=== PATIENT | female | born 1965 | race Caucasian/White ===

== ENCOUNTER 2021-01-26 12:43 | Outpatient (CLI) | payer OTHER | END 2021-01-26 12:44 | disposition home or self-care (01) | LOC: BICCT 12:43 | PROVIDERS: ATTEND Family Medicine | DX: Z12.2 Encounter for screening for malignant neoplasm of respiratory organs (principal); Z87.891 Personal history of nicotine dependence | CPT/HCPCS: 71271 ==

== ENCOUNTER 2021-01-26 13:54 | Outpatient (CLI) | payer OTHER | END 2021-01-26 13:55 | disposition home or self-care (01) | LOC: BICMAMMO 13:54 | PROVIDERS: ATTEND Family Medicine | DX: Z12.31 Encounter for screening mammogram for malignant neoplasm of breast (principal) | CPT/HCPCS: 77063; 77067 ==

== ENCOUNTER 2021-02-23 17:20 | Inpatient (IN) | payer OTHER ==
[2021-02-23] MEDS ORDERED: traMADol HCl 50 MG TAB PO SCH (22:45)
[2021-02-23] MEDS: methylPREDNISolone Sod Succ 40 MG VIAL IVP SCH (23:50)
[2021-02-24] MEDS: Ondansetron PF 4 MG/2 ML Vial IVP PRN ×2 (03:49→09:16)
[2021-02-24] MEDS ORDERED: Ketorolac Tromethamine 30 MG/ML VIAL IVP SCH (04:15)
[2021-02-24] MEDS: methylPREDNISolone Sod Succ 40 MG VIAL IVP SCH ×4 (05:42→23:37)
[2021-02-24] MEDS: Acetaminophen 325 MG TAB PO PRN ×2 (05:54→15:56)
[2021-02-24] MEDS: Mometasone 100 MCG/Formoterol 5 MCG 120 PUFF INHALER INH SCH (07:54)
[2021-02-24] MEDS: Venlafaxine HCl XR 150 MG CAP PO SCH (08:36)
[2021-02-24] MEDS: Enoxaparin Sodium 40 MG/0.4 ML SYRINGE SC SCH (08:36)
[2021-02-24] MEDS: Famotidine 20 MG TAB PO SCH ×2 (08:36→19:55)
[2021-02-24] MEDS ORDERED: Promethazine HCl 25 MG in Sodium Chloride 0.9% 50 ML IVPB PRN (11:06)
[2021-02-24] MEDS: Ketorolac Tromethamine 30 MG/ML VIAL IVP PRN ×2 (11:36→17:53)
[2021-02-24] MEDS: Azithromycin 500 MG in Sodium Chloride 0.9% 250 ML 250 ML IVPB SCH (13:20)
[2021-02-24] MEDS: cefTRIAXone\\ROCEPHIN 1 GM in Sodium Chloride 0.9% 100 ML IVPB SCH (15:50)
[2021-02-24] MEDS ORDERED: traMADol HCl 50 MG TAB PO SCH (21:30)
[2021-02-25] MEDS: Mometasone 100 MCG/Formoterol 5 MCG 120 PUFF INHALER INH SCH ×3 (01:38→18:56)
[2021-02-25] MEDS: methylPREDNISolone Sod Succ 40 MG VIAL IVP SCH ×4 (05:28→23:41)
[2021-02-25] MEDS: Ketorolac Tromethamine 30 MG/ML VIAL IVP PRN ×3 (06:31→19:57)
[2021-02-25 06:54] LABS: Anion Gap 9 mmol/L (10-20); BUN (Urea Nitrogen) 11 mg/dL (9.8-20.1); Calc. Creatinine Clearance 88 mL/min (70-130); Calcium 9.7 mg/dL (7.8-10.44); Carbon Dioxide 36 mmol/L (22-29); Chloride 98 mmol/L (98-107); Glucose 130 mg/dL (70-105); Potassium 5.4 mmol/L (3.5-5.1); Sodium 138 mmol/L (136-145)
[2021-02-25] MEDS ORDERED: Non-Formulary Item 1 EACH (Tiotropium Bromide [Spiriva] 18 MCG Cap.W.Dev) INH SCH (09:00)
[2021-02-25] MEDS ORDERED: Venlafaxine HCl XR 150 MG CAP PO SCH (09:00)
[2021-02-25] MEDS: Famotidine 20 MG TAB PO SCH ×2 (09:43→19:57)
[2021-02-25] MEDS: Enoxaparin Sodium 40 MG/0.4 ML SYRINGE SC SCH (09:43)
[2021-02-25] MEDS: Venlafaxine HCl XR 150 MG CAP PO SCH (09:43)
[2021-02-25] MEDS: Acetaminophen 325 MG TAB PO PRN ×2 (09:51→23:40)
[2021-02-25] MEDS: Azithromycin 500 MG in Sodium Chloride 0.9% 250 ML 250 ML IVPB SCH (12:44)
[2021-02-25] MEDS: cefTRIAXone\\ROCEPHIN 1 GM in Sodium Chloride 0.9% 100 ML IVPB SCH (14:43)
[2021-02-26] MEDS: Ketorolac Tromethamine 30 MG/ML VIAL IVP PRN ×2 (03:29→10:59)
[2021-02-26] MEDS: methylPREDNISolone Sod Succ 40 MG VIAL IVP SCH ×4 (05:38→23:26)
[2021-02-26 06:26] LABS: #Eosinphils 0.3 thou/uL (0.0-0.7); #Lymphocytes 0.6 thou/uL (1.20-3.40); #Monocytes 0.8 thou/uL (0.11-0.59); #Neutrophils 13.3 thou/uL (1.40-6.50); %Basophils 0.1 % (0.0-1.0); %Eosinophils 1.9 % (0.0-10.0); %Lymphocytes 4.1 % (21.0-51.0); %Monocytes 5.4 % (0.0-10.0); %Neutrophils 88.6 % (42.0-75.0); Hemoglobin 13.7 g/dL (12.0-16.0); Mean Corpuscular HGB CONC 30.2 g/dL (32.0-36.0); Mean Corpuscular Hemoglobin 29.6 pg (27.0-31.0); Mean Platelet Volume 6.5 fL (7.4-10.4); Platelet Count 326 thou/uL (130-400); RBC Distribution Width 12.2 % (11.5-14.5); Red Blood Cell (RBC) Count 4.64 mill/uL (4.20-5.40)
[2021-02-26 06:45] LABS: BUN (Urea Nitrogen) 18 mg/dL (9.8-20.1); Calc. Creatinine Clearance 102 mL/min (70-130); Calcium 9.6 mg/dL (7.8-10.44); Glucose 158 mg/dL (70-105)
[2021-02-26] MEDS: Mometasone 100 MCG/Formoterol 5 MCG 120 PUFF INHALER INH SCH ×2 (06:53→18:41)
[2021-02-26 06:54] LABS: Anion Gap 13 mmol/L (10-20); Carbon Dioxide 36 mmol/L (22-29); Chloride 94 mmol/L (98-107); Potassium 5.1 mmol/L (3.5-5.1); Sodium 138 mmol/L (136-145)
[2021-02-26] MEDS: Venlafaxine HCl XR 150 MG CAP PO SCH (08:22)
[2021-02-26] MEDS: Famotidine 20 MG TAB PO SCH ×2 (08:22→20:53)
[2021-02-26] MEDS: Enoxaparin Sodium 40 MG/0.4 ML SYRINGE SC SCH (08:23)
[2021-02-26 13:26] LABS: Actual Bicarbonate (HCO3a) 45.2 mEq/L (22-28); Base Excess (BEa) 12.9 mEq/L (-2.0 to +3.0); Calcium, Ionized (arterial) 1.31 mmol/L (1.12-1.30); Carboxyhemoglobin (COHb) 0.8 gm% (0.0-3.0); Hemoglobin (Hb) 14.6 g/dL (12.0-16.0); O2 Tension (PaO2), arterial 71.4 mmHg (80.0-100.0); Potassium - ABG Lab 4.81 mmol/L (3.70-5.30)
[2021-02-26 13:33] LABS: ALV-art Gradient 25.135 mmHg (0-20); CO2 Tension 105.3 mmHg (35.0-45.0); Puncture Site RRA; pH, Arterial 7.25 (7.35-7.45)
[2021-02-26] MEDS: Azithromycin 500 MG in Sodium Chloride 0.9% 250 ML 250 ML IVPB SCH (15:02)
[2021-02-26] MEDS: cefTRIAXone\\ROCEPHIN 1 GM in Sodium Chloride 0.9% 100 ML IVPB SCH (17:13)
[2021-02-27] MEDS ORDERED: ALPRAZolam 0.25 MG TAB PO SCH (03:00)
[2021-02-27] MEDS: methylPREDNISolone Sod Succ 40 MG VIAL IVP SCH ×3 (05:58→17:10)
[2021-02-27] MEDS: Mometasone 100 MCG/Formoterol 5 MCG 120 PUFF INHALER INH SCH (07:40)
[2021-02-27] MEDS ORDERED: Potassium Phosphate 15 MMOL in Sodium Chloride 0.9% 250 ML 250 ML IVPB PRN (07:43)
[2021-02-27 08:59] LABS: Actual Bicarbonate (HCO3a) 44.1 mEq/L (22-28); Base Excess (BEa) 13.9 mEq/L (-2.0 to +3.0); Calcium, Ionized (arterial) 1.22 mmol/L (1.12-1.30); Hemoglobin (Hb) 15.2 g/dL (12.0-16.0); Potassium - ABG Lab 4.35 mmol/L (3.70-5.30); pH, Arterial 7.35 (7.35-7.45)
[2021-02-27 09:10] LABS: Puncture Site RRA
[2021-02-27] MEDS: Venlafaxine HCl XR 150 MG CAP PO SCH (09:24)
[2021-02-27] MEDS: Famotidine 20 MG TAB PO SCH ×2 (09:24→20:54)
[2021-02-27] MEDS: Enoxaparin Sodium 40 MG/0.4 ML SYRINGE SC SCH (09:24)
[2021-02-27 10:06] LABS: Magnesium 2.3 mg/dL (1.6-2.6)
[2021-02-27] MEDS ORDERED: Propofol 1,000 MG/100 ML VIAL IV ONE (10:30)
[2021-02-27] MEDS ORDERED: cloNIDine 0.3mg/24 Hour PATCH TD SCH (11:30)
[2021-02-27] MEDS ORDERED: acetaZOLAMIDE Sodium 500 mg Vial IVP SCH (12:00)
[2021-02-27] MEDS ORDERED: Sterile Water 10 ML VIAL IVP PRN (12:00)
[2021-02-27] MEDS: acetaZOLAMIDE Sodium 500 mg Vial IVP SCH (12:56)
[2021-02-27 13:13] LABS: Actual Bicarbonate (HCO3a) 42.3 mEq/L (22-28); Base Excess (BEa) 12.9 mEq/L (-2.0 to +3.0); Potassium - ABG Lab 4.08 mmol/L (3.70-5.30); pH, Arterial 7.36 (7.35-7.45)
[2021-02-27] MEDS: Azithromycin 500 MG in Sodium Chloride 0.9% 250 ML 250 ML IVPB SCH (13:23)
[2021-02-27 13:50] LABS: BUN (Urea Nitrogen) 21 mg/dL (9.8-20.1); Calc. Creatinine Clearance 114 mL/min (70-130); Calcium 9.5 mg/dL (7.8-10.44); Glucose 121 mg/dL (70-105)
[2021-02-27 14:03] LABS: Anion Gap 14 mmol/L (10-20); Carbon Dioxide 36 mmol/L (22-29); Chloride 92 mmol/L (98-107); Potassium 4.3 mmol/L (3.5-5.1); Sodium 138 mmol/L (136-145)
[2021-02-27 15:32] LABS: CO2 Tension 76.6 mmHg (35.0-45.0)
[2021-02-27] MEDS: cefTRIAXone\\ROCEPHIN 1 GM in Sodium Chloride 0.9% 100 ML IVPB SCH (15:32)
[2021-02-27 15:33] LABS: O2 Tension (PaO2), arterial 56.4 mmHg (80.0-100.0); Puncture Site LRA
[2021-02-27] MEDS ORDERED: Nitroglycerin 0.6mg/Hour PATCH TOP SCH (17:00)
[2021-02-27] MEDS: Nitroglycerin 0.6mg/Hour PATCH TOP SCH (17:08)
[2021-02-27] MEDS: Arformoterol 15 MCG/2 ML NEB NEB SCH (18:43)
[2021-02-27] MEDS: Budesonide 0.5 MG/2 ML NEB NEB SCH (18:43)
[2021-02-27] MEDS: Mometasone 200 MCG/Formoterol 5 MCG 120 PUFF INHALER INH SCH (18:44)
[2021-02-28] MEDS: methylPREDNISolone Sod Succ 40 MG VIAL IVP SCH ×5 (00:27→23:17)
[2021-02-28 03:48] LABS: #Eosinphils 0.1 thou/uL (0.0-0.7); #Lymphocytes 0.5 thou/uL (1.20-3.40); #Monocytes 0.9 thou/uL (0.11-0.59); #Neutrophils 10.3 thou/uL (1.40-6.50); %Eosinophils 0.6 % (0.0-10.0); %Lymphocytes 4.5 % (21.0-51.0); %Monocytes 7.7 % (0.0-10.0); %Neutrophils 87.2 % (42.0-75.0); Hemoglobin 14.4 g/dL (12.0-16.0); Mean Corpuscular HGB CONC 31.8 g/dL (32.0-36.0); Mean Corpuscular Hemoglobin 29.9 pg (27.0-31.0); Mean Corpuscular Volume 94.1 fL (78.0-98.0); Mean Platelet Volume 6.5 fL (7.4-10.4); Platelet Count 370 thou/uL (130-400); Red Blood Cell (RBC) Count 4.82 mill/uL (4.20-5.40); White Blood Cell (WBC) Count 11.8 thou/uL (4.8-10.8)
[2021-02-28 04:08] LABS: Anion Gap 12 mmol/L (10-20); BUN (Urea Nitrogen) 31 mg/dL (9.8-20.1); Calc. Creatinine Clearance 82 mL/min (70-130); Calcium 9.7 mg/dL (7.8-10.44); Carbon Dioxide 33 mmol/L (22-29); Chloride 99 mmol/L (98-107); Glucose 131 mg/dL (70-105); Magnesium 2.6 mg/dL (1.6-2.6); Phosphorus 3.2 mg/dL (2.3-4.7); Potassium 4.5 mmol/L (3.5-5.1); Sodium 139 mmol/L (136-145)
[2021-02-28] MEDS: acetaZOLAMIDE Sodium 500 mg Vial IVP SCH ×2 (06:18→11:47)
[2021-02-28 06:59] LABS: Actual Bicarbonate (HCO3a) 32.3 mEq/L (22-28); CO2 Tension 58.4 mmHg (35.0-45.0); Calcium, Ionized (arterial) 1.24 mmol/L (1.12-1.30); Hemoglobin (Hb) 14.7 g/dL (12.0-16.0); O2 Tension (PaO2), arterial 67.4 mmHg (80.0-100.0); Potassium - ABG Lab 4.32 mmol/L (3.70-5.30); Puncture Site LRA; pH, Arterial 7.36 (7.35-7.45)
[2021-02-28] MEDS: Arformoterol 15 MCG/2 ML NEB NEB SCH ×2 (07:30→18:26)
[2021-02-28] MEDS: Budesonide 0.5 MG/2 ML NEB NEB SCH ×2 (07:30→18:26)
[2021-02-28] MEDS: Venlafaxine HCl XR 150 MG CAP PO SCH (09:08)
[2021-02-28] MEDS: Famotidine 20 MG TAB PO SCH ×2 (09:08→22:00)
[2021-02-28] MEDS: Enoxaparin Sodium 40 MG/0.4 ML SYRINGE SC SCH (09:08)
[2021-02-28] MEDS: Azithromycin 500 MG in Sodium Chloride 0.9% 250 ML 250 ML IVPB SCH (12:53)
[2021-02-28] MEDS: cefTRIAXone\\ROCEPHIN 1 GM in Sodium Chloride 0.9% 100 ML IVPB SCH (13:50)
[2021-02-28] MEDS: Acetaminophen 325 MG TAB PO PRN (13:50)
[2021-02-28] MEDS: Mometasone 200 MCG/Formoterol 5 MCG 120 PUFF INHALER INH SCH ×2 (14:29→18:27)
[2021-02-28] MEDS: Nitroglycerin 0.6mg/Hour PATCH TOP SCH (16:51)
[2021-02-28] MEDS ORDERED: Labetalol HCl 100 MG/20 ML VIAL SLOW IVP PRN (22:50)
[2021-03-01] MEDS: Ketorolac Tromethamine 30 MG/ML VIAL IVP PRN (04:13)
[2021-03-01 04:36] LABS: #Eosinphils 0.1 thou/uL (0.0-0.7); #Lymphocytes 0.6 thou/uL (1.20-3.40); #Monocytes 1.2 thou/uL (0.11-0.59); #Neutrophils 14.5 thou/uL (1.40-6.50); %Basophils 0.3 % (0.0-1.0); %Eosinophils 0.4 % (0.0-10.0); %Lymphocytes 3.7 % (21.0-51.0); %Monocytes 7.1 % (0.0-10.0); %Neutrophils 88.5 % (42.0-75.0); Hemoglobin 15.5 g/dL (12.0-16.0); Mean Corpuscular HGB CONC 32.5 g/dL (32.0-36.0); Mean Corpuscular Hemoglobin 30.4 pg (27.0-31.0); Mean Corpuscular Volume 93.3 fL (78.0-98.0); Mean Platelet Volume 6.8 fL (7.4-10.4); Platelet Count 428 thou/uL (130-400); RBC Distribution Width 12.2 % (11.5-14.5); White Blood Cell (WBC) Count 16.4 thou/uL (4.8-10.8)
[2021-03-01 04:58] LABS: Anion Gap 10 mmol/L (10-20); BUN (Urea Nitrogen) 28 mg/dL (9.8-20.1); Calc. Creatinine Clearance 95 mL/min (70-130); Calcium 9.5 mg/dL (7.8-10.44); Carbon Dioxide 29 mmol/L (22-29); Chloride 104 mmol/L (98-107); Glucose 153 mg/dL (70-105); Magnesium 2.7 mg/dL (1.6-2.6); Phosphorus 3.3 mg/dL (2.3-4.7); Potassium 4.1 mmol/L (3.5-5.1); Sodium 139 mmol/L (136-145)
[2021-03-01] MEDS: acetaZOLAMIDE Sodium 500 mg Vial IVP SCH (06:05)
[2021-03-01] MEDS: methylPREDNISolone Sod Succ 40 MG VIAL IVP SCH ×4 (06:06→23:37)
[2021-03-01] MEDS ORDERED: Sterile Water 10 ML ONE (06:09)
[2021-03-01] MEDS: Budesonide 0.5 MG/2 ML NEB NEB SCH ×2 (06:59→21:07)
[2021-03-01] MEDS: Arformoterol 15 MCG/2 ML NEB NEB SCH ×2 (06:59→21:07)
[2021-03-01 07:03] LABS: Actual Bicarbonate (HCO3a) 29.6 mEq/L (22-28); Base Excess (BEa) -0.8 mEq/L (-2.0 to +3.0); Calcium, Ionized (arterial) 1.31 mmol/L (1.12-1.30); Carboxyhemoglobin (COHb) 0.7 gm% (0.0-3.0); O2 Tension (PaO2), arterial 123.6 mmHg (80.0-100.0); Potassium - ABG Lab 4.37 mmol/L (3.70-5.30)
[2021-03-01 07:45] LABS: CO2 Tension 75.8 mmHg (35.0-45.0); pH, Arterial 7.21 (7.35-7.45)
[2021-03-01 07:46] LABS: Puncture Site RRA
[2021-03-01] MEDS: Venlafaxine HCl XR 150 MG CAP PO SCH (09:48)
[2021-03-01] MEDS: Enoxaparin Sodium 40 MG/0.4 ML SYRINGE SC SCH (09:48)
[2021-03-01] MEDS: Famotidine 20 MG TAB PO SCH ×2 (09:48→21:18)
[2021-03-01 11:49] LABS: Actual Bicarbonate (HCO3a) 28.5 mEq/L (22-28); Base Excess (BEa) -0.3 mEq/L (-2.0 to +3.0); Calcium, Ionized (arterial) 1.31 mmol/L (1.12-1.30); Carboxyhemoglobin (COHb) 0.9 gm% (0.0-3.0); Hemoglobin (Hb) 16.3 g/dL (12.0-16.0); Potassium - ABG Lab 4.26 mmol/L (3.70-5.30); pH, Arterial 7.27 (7.35-7.45)
[2021-03-01 11:58] LABS: CO2 Tension 63.6 mmHg (35.0-45.0); O2 Tension (PaO2), arterial 52.4 mmHg (80.0-100.0); Puncture Site RRA
[2021-03-01] MEDS: Azithromycin 500 MG in Sodium Chloride 0.9% 250 ML 250 ML IVPB SCH (15:13)
[2021-03-01] MEDS: cefTRIAXone\\ROCEPHIN 1 GM in Sodium Chloride 0.9% 100 ML IVPB SCH (15:27)
[2021-03-01] MEDS: Nitroglycerin 0.6mg/Hour PATCH TOP SCH (17:27)
[2021-03-01] MEDS: Naproxen 500 MG TAB PO PRN (18:07)
[2021-03-01] MEDS: Mometasone 200 MCG/Formoterol 5 MCG 120 PUFF INHALER INH SCH ×2 (21:03→21:09)
[2021-03-02 04:31] LABS: #Eosinphils 0.1 thou/uL (0.0-0.7); #Lymphocytes 0.5 thou/uL (1.20-3.40); #Monocytes 0.8 thou/uL (0.11-0.59); #Neutrophils 15.3 thou/uL (1.40-6.50); %Basophils 0.1 % (0.0-1.0); %Eosinophils 0.7 % (0.0-10.0); %Lymphocytes 2.7 % (21.0-51.0); %Monocytes 4.8 % (0.0-10.0); %Neutrophils 91.7 % (42.0-75.0); Hemoglobin 14.9 g/dL (12.0-16.0); Mean Corpuscular HGB CONC 31.9 g/dL (32.0-36.0); Mean Corpuscular Hemoglobin 29.7 pg (27.0-31.0); Mean Corpuscular Volume 93.1 fL (78.0-98.0); Mean Platelet Volume 6.8 fL (7.4-10.4); Platelet Count 401 thou/uL (130-400); RBC Distribution Width 12.2 % (11.5-14.5); White Blood Cell (WBC) Count 16.6 thou/uL (4.8-10.8)
[2021-03-02 04:56] LABS: Magnesium 2.3 mg/dL (1.6-2.6); Phosphorus 1.7 mg/dL (2.3-4.7)
[2021-03-02] MEDS: methylPREDNISolone Sod Succ 40 MG VIAL IVP SCH ×2 (05:38→20:54)
[2021-03-02] MEDS: Budesonide 0.5 MG/2 ML NEB NEB SCH ×2 (07:05→19:23)
[2021-03-02] MEDS: Arformoterol 15 MCG/2 ML NEB NEB SCH ×2 (07:05→19:23)
[2021-03-02] MEDS: Mometasone 200 MCG/Formoterol 5 MCG 120 PUFF INHALER INH SCH ×2 (07:06→19:24)
[2021-03-02 07:25] LABS: Actual Bicarbonate (HCO3a) 28.2 mEq/L (22-28); Base Excess (BEa) 0.4 mEq/L (-2.0 to +3.0); CO2 Tension 58.3 mmHg (35.0-45.0); Calcium, Ionized (arterial) 1.24 mmol/L (1.12-1.30); Hemoglobin (Hb) 15.3 g/dL (12.0-16.0); Potassium - ABG Lab 4.44 mmol/L (3.70-5.30)
[2021-03-02 07:38] LABS: ALV-art Gradient 53.305 mmHg (0-20); O2 Tension (PaO2), arterial 59.2 mmHg (80.0-100.0); Puncture Site RRA
[2021-03-02] MEDS ORDERED: Electrolyte Replacement Protocol 1 EACH FS PRN (09:59)
[2021-03-02] MEDS: Enoxaparin Sodium 40 MG/0.4 ML SYRINGE SC SCH (10:01)
[2021-03-02] MEDS: Famotidine 20 MG TAB PO SCH ×2 (10:02→20:53)
[2021-03-02] MEDS: Venlafaxine HCl XR 150 MG CAP PO SCH (10:02)
[2021-03-02] MEDS: Nitroglycerin 0.6mg/Hour PATCH TOP SCH (17:33)
[2021-03-03 06:11] LABS: Anion Gap 6 mmol/L (10-20); BUN (Urea Nitrogen) 18 mg/dL (9.8-20.1); Calc. Creatinine Clearance 111 mL/min (70-130); Calcium 8.8 mg/dL (7.8-10.44); Carbon Dioxide 33 mmol/L (22-29); Chloride 101 mmol/L (98-107); Glucose 165 mg/dL (70-105); Magnesium 2.1 mg/dL (1.6-2.6); Potassium 4.3 mmol/L (3.5-5.1); Sodium 136 mmol/L (136-145)
[2021-03-03] MEDS: Mometasone 200 MCG/Formoterol 5 MCG 120 PUFF INHALER INH SCH ×2 (08:00→18:57)
[2021-03-03] MEDS: Arformoterol 15 MCG/2 ML NEB NEB SCH ×2 (08:00→18:56)
[2021-03-03] MEDS: Budesonide 0.5 MG/2 ML NEB NEB SCH ×2 (08:00→18:56)
[2021-03-03] MEDS: Venlafaxine HCl XR 150 MG CAP PO SCH (08:52)
[2021-03-03] MEDS: methylPREDNISolone Sod Succ 40 MG VIAL IVP SCH ×2 (08:52→21:53)
[2021-03-03] MEDS: Famotidine 20 MG TAB PO SCH ×2 (08:52→21:20)
[2021-03-03] MEDS: Enoxaparin Sodium 40 MG/0.4 ML SYRINGE SC SCH (08:52)
[2021-03-03] MEDS: Nitroglycerin 0.6mg/Hour PATCH TOP SCH (17:46)
[2021-03-04 04:10] LABS: Hemoglobin A1c 5.6 % (4.0-6.0)
[2021-03-04 04:22] LABS: Anion Gap 11 mmol/L (10-20); BUN (Urea Nitrogen) 21 mg/dL (9.8-20.1); Calc. Creatinine Clearance 102 mL/min (70-130); Calcium 9.2 mg/dL (7.8-10.44); Carbon Dioxide 33 mmol/L (22-29); Chloride 97 mmol/L (98-107); Glucose 201 mg/dL (70-105); Potassium 4.6 mmol/L (3.5-5.1); Sodium 136 mmol/L (136-145)
[2021-03-04 04:23] LABS: Hemoglobin 14.5 g/dL (12.0-16.0); Mean Corpuscular HGB CONC 32.6 g/dL (32.0-36.0); Mean Corpuscular Hemoglobin 30.2 pg (27.0-31.0); Mean Corpuscular Volume 92.5 fL (78.0-98.0); Platelet Count 353 thou/uL (130-400); RBC Distribution Width 12.2 % (11.5-14.5); Red Blood Cell (RBC) Count 4.82 mill/uL (4.20-5.40)
[2021-03-04 05:05] LABS: Band 18 % (5-11); Lymphocytes 6 % (21-51); MDiff Complete? YES; Monocytes 1 % (0-10); Myelocyte 2 % (0-0); Neutrophil 73 % (42-75)
[2021-03-04] MEDS: Arformoterol 15 MCG/2 ML NEB NEB SCH ×2 (08:19→19:50)
[2021-03-04] MEDS: Mometasone 200 MCG/Formoterol 5 MCG 120 PUFF INHALER INH SCH ×2 (08:20→19:51)
[2021-03-04] MEDS: Budesonide 0.5 MG/2 ML NEB NEB SCH ×2 (08:20→19:51)
[2021-03-04] MEDS: Venlafaxine HCl XR 150 MG CAP PO SCH (08:53)
[2021-03-04] MEDS: Famotidine 20 MG TAB PO SCH ×2 (08:53→20:37)
[2021-03-04] MEDS: Enoxaparin Sodium 40 MG/0.4 ML SYRINGE SC SCH (08:54)
[2021-03-04] MEDS ORDERED: predniSONE 20 MG TAB PO SCH (09:00)
[2021-03-04] MEDS: methylPREDNISolone Sod Succ 40 MG VIAL IVP SCH (11:06)
[2021-03-04] MEDS: Nitroglycerin 0.6mg/Hour PATCH TOP SCH (17:08)
[2021-03-05] MEDS: Mometasone 200 MCG/Formoterol 5 MCG 120 PUFF INHALER INH SCH ×2 (07:34→18:49)
[2021-03-05] MEDS: Budesonide 0.5 MG/2 ML NEB NEB SCH ×2 (07:34→18:55)
[2021-03-05] MEDS: Arformoterol 15 MCG/2 ML NEB NEB SCH ×2 (07:36→18:55)
[2021-03-05 08:44] LABS: Bilirubin Negative (Negative); Blood, Urine 3+ (Negative); Calcium Oxalate Crystals 4+ HPF (None Seen); Clarity Turbid (Clear); Glucose, Urine (Dipstick) Normal (Negative); Ketone, Urine Negative (Negative); Leukocyte 75 Leu/uL (Negative); Nitrite Negative (Negative); Protein, Urine (Dipstick) 200 mg/dL (Neg-Trace); RBC/HPF Greater than 50 HPF (0-3); Specific Gravity, Urine 1.022 (1.002-1.036); Squamous Epithelial 0-3 HPF (0-3); Urobilinogen Normal mg/dL (Less than 2); WBC/HPF 21-50 HPF (0-3); pH, Urine 6.5 (5.0-9.0)
[2021-03-05 08:46] LABS: Bacteria/HPF 1+ HPF (None Seen)
[2021-03-05 08:47] LABS: Urine Culture Reflex Yes Yes
[2021-03-05] MEDS ORDERED: predniSONE 20 MG TAB PO SCH (09:00)
[2021-03-05] MEDS: Venlafaxine HCl XR 150 MG CAP PO SCH (10:30)
[2021-03-05] MEDS: Famotidine 20 MG TAB PO SCH ×2 (10:30→21:21)
[2021-03-05] MEDS: Enoxaparin Sodium 40 MG/0.4 ML SYRINGE SC SCH (10:30)
[2021-03-05] MEDS ORDERED: Metoprolol Tartrate 25 MG TAB PO SCH (11:15)
[2021-03-05] MEDS ORDERED: Sulfameth/Trimethoprim DS 800-160mg TAB PO SCH (11:15)
[2021-03-05 14:21] VITALS: BMI 30.1
[2021-03-05] MEDS: Nitroglycerin 0.6mg/Hour PATCH TOP SCH (17:05)
[2021-03-06 03:43] LABS: Hemoglobin 13.6 g/dL (12.0-16.0); Mean Corpuscular Hemoglobin 29.7 pg (27.0-31.0); Mean Corpuscular Volume 92.7 fL (78.0-98.0); Mean Platelet Volume 7.2 fL (7.4-10.4); Platelet Count 245 thou/uL (130-400); White Blood Cell (WBC) Count 13.7 thou/uL (4.8-10.8)
[2021-03-06] MEDS: Naproxen 500 MG TAB PO PRN ×2 (04:11→13:36)
[2021-03-06 04:34] LABS: Band 6 % (5-11); Eosinophils 7 % (0-10); Lymphocytes 3 % (21-51); MDiff Complete? YES; Metamyelocyte 1 % (0-0); Monocytes 5 % (0-10); Myelocyte 2 % (0-0); Neutrophil 75 % (42-75); Platelet Morphology Comment Appears Adequate; RBC Morphology Normal; Reactive Lymphocytes 1 % (0-10)
[2021-03-06] MEDS ORDERED: traMADol HCl 50 MG TAB PO SCH (04:45)
[2021-03-06] MEDS: Mometasone 200 MCG/Formoterol 5 MCG 120 PUFF INHALER INH SCH (07:47)
[2021-03-06] MEDS: Budesonide 0.5 MG/2 ML NEB NEB SCH (07:47)
[2021-03-06] MEDS: Arformoterol 15 MCG/2 ML NEB NEB SCH (07:47)
[2021-03-06 08:39] VITALS: TEMP 98.1
[2021-03-06] MEDS: Enoxaparin Sodium 40 MG/0.4 ML SYRINGE SC SCH (08:41)
[2021-03-06] MEDS: Venlafaxine HCl XR 150 MG CAP PO SCH (08:42)
[2021-03-06] MEDS: Famotidine 20 MG TAB PO SCH (08:42)
[2021-03-06] MEDS ORDERED: Lisinopril 10 MG TAB PO SCH (09:00)
[2021-03-06] MEDS ORDERED: predniSONE 20 MG TAB PO SCH (09:00)
[2021-03-06] MEDS ORDERED: Sulfameth/Trimethoprim DS 800-160mg TAB PO SCH ×2 (11:00→21:00)
[2021-03-06 16:59] VITALS: BP 157/80
[2021-03-06] MEDS ORDERED: Metoprolol Tartrate 25 MG TAB PO SCH (21:00)
[2021-03-07] MEDS ORDERED: predniSONE 5 MG TAB PO SCH (09:00)
== END 2021-03-06 17:38 | disposition home or self-care (01) | DRG 871 ==
LOC: T4-A 17:20 → IMCU/EMU 02-27 02:02 → CCU 02-27 10:22 → IMCU/EMU 03-01 20:07 → 2NO 03-04 14:19
PROVIDERS: ADMIT Internal Medicine; ATTEND Internal Medicine
PROC: 5A09557 Assistance with Respiratory Ventilation, Greater than 96 Consecutive Hours, Continuous Positive Airway Pressure (ICD-10-PCS; principal; 2021-02-26)
DX: A41.9 Sepsis, unspecified organism (principal); J96.21 Acute and chronic respiratory failure with hypoxia; G93.41 Metabolic encephalopathy; J96.22 Acute and chronic respiratory failure with hypercapnia; J21.0 Acute bronchiolitis due to respiratory syncytial virus; N39.0 Urinary tract infection, site not specified; E87.2 Acidosis; J43.9 Emphysema, unspecified; R73.9 Hyperglycemia, unspecified; I10 Essential (primary) hypertension; T38.0X5A Adverse effect of glucocorticoids and synthetic analogues, initial encounter; F41.9 Anxiety disorder, unspecified; Z79.51 Long term (current) use of inhaled steroids; Z79.899 Other long term (current) drug therapy; Z90.49 Acquired absence of other specified parts of digestive tract; Z98.51 Tubal ligation status; Z87.891 Personal history of nicotine dependence; Z20.822 Contact with and (suspected) exposure to COVID-19
CPT/HCPCS: 0241U; 36415; 36600; 71045; 80048; 80053; 81001; 82805; 83036; 83605; 83735; 84100; 84484; 85025; 87077; 87086; 87186; 93005; 94640; 94660; 96365; 96366; J0456; J0696; J1120; J1650; J1885; J2405; J2550; J2920; J3490; J7050; J7512; J7620; J7626

== ENCOUNTER 2021-06-04 13:12 | Outpatient (CLI) | payer OTHER ==
[2021-06-04 15:26] LABS: Bilirubin Neg (Negative); Blood, Urine Negative (Negative); Clarity Clear (Clear); Glucose, Urine (Dipstick) Normal (Negative); Ketone, Urine Negative (Negative); Leukocyte 25 (Negative); Nitrite Negative (Negative); Protein, Urine (Dipstick) Negative (Neg-Trace); Urobilinogen Normal mg/dL (Less than 2)
[2021-06-04 15:29] LABS: #Basophils 0.1 10x3/uL (0.0-0.2); #Eosinphils 0.3 10x3/uL (0.0-0.5); #Monocytes 0.8 10x3/uL (0.0-1.1); #Neutrophils 9.6 10x3/uL (1.5-8.4); %Basophils 0.6 % (0.0-2.0); %Eosinophils 2.3 % (0.0-6.0); %Lymphocytes 12.3 % (18.0-47.0); %Monocytes 6.2 % (0.0-10.0); %Neutrophils 77.7 % (40.0-75.0); Hemoglobin 13.2 g/dL (12.0-15.5); Mean Corpuscular HGB CONC 31.1 g/dL (32.0-36.0); Mean Corpuscular Hemoglobin 29.1 pg (27.0-33.0); Mean Corpuscular Volume 93.4 fl (81.6-98.3); Mean Platelet Volume 9.3 fl (7.4-10.4); Platelet Count 473 10x3/uL (150-450); RBC Distribution Width 13.2 % (11.5-14.5); Red Blood Cell (RBC) Count 4.54 10x6/uL (3.90-5.03); White Blood Cell (WBC) Count 12.4 10x3/uL (3.5-10.5)
[2021-06-04 15:44] LABS: Bacteria/HPF Rare-Few HPF (None Seen); RBC/HPF 0-3 HPF (0-3); Squamous Epithelial 0-3 HPF (0-3); Yeast-Budding Rare HPF (None Seen)
[2021-06-05 12:05] LABS: SARS-CoV-2 PCR by NAA Not Detected (NotDetected)
== END 2021-06-04 13:13 | disposition home or self-care (01) ==
LOC: LABBT 13:12
PROVIDERS: ATTEND Orthopaedic Surgery Hand Surgery
DX: Z01.818 Encounter for other preprocedural examination (principal); M18.11 Unilateral primary osteoarthritis of first carpometacarpal joint, right hand; Z20.822 Contact with and (suspected) exposure to COVID-19
CPT/HCPCS: 81003; 81015; 85025; 93005; 93010; U0003; U0005

== ENCOUNTER 2021-06-09 07:30 | Day surgery (SDC) | payer OTHER ==
[2021-06-05 14:15] VITALS: BMI 29.6
[2021-06-09] MEDS ORDERED: Midazolam HCl 2 mg/2 ml Vial ONE (08:07)
[2021-06-09] MEDS ORDERED: Fentanyl 100 MCG/2 ML VIAL ONE (08:07)
[2021-06-09] MEDS ORDERED: ceFAZolin 2 GM/DEX 5% 100 ML BAG ONE (08:47)
[2021-06-09] MEDS ORDERED: Bacitracin Zinc Ointment 30 gm TUBE ONE (09:52)
[2021-06-09] MEDS ORDERED: Neomycin-Polymyxin 1 ML AMP ONE (09:52)
[2021-06-09] MEDS ORDERED: Bupivacaine PF 0.5% 30 ML VIAL ONE (09:52)
[2021-06-09] MEDS ORDERED: Dexamethasone 20 MG/5 ML VIAL ONE (10:27)
[2021-06-09] MEDS ORDERED: Ketorolac Tromethamine 30 MG/ML VIAL ONE (10:27)
[2021-06-09] MEDS ORDERED: Lidocaine 1% PF 5 ML VIAL ONE (10:27)
[2021-06-09] MEDS ORDERED: Ondansetron PF 4 MG/2 ML Vial ONE (10:27)
[2021-06-09] MEDS ORDERED: PROPOFOL 200 MG/20 ML VIAL ONE (10:27)
[2021-06-09] MEDS ORDERED: Bupivacaine HCl 0.5%/Epinephrine 1:200,000/PF 30 ml Vial ONE (10:27)
[2021-06-09] MEDS ORDERED: Fluorescein Opthalmic Strip EA EYE SCH (14:00)
== END 2021-06-09 15:05 | disposition home or self-care (01) ==
LOC: SDC 07:30
PROVIDERS: ATTEND Orthopaedic Surgery Hand Surgery
PROC: 0LX50ZZ Transfer Right Lower Arm and Wrist Tendon, Open Approach (ICD-10-PCS; principal; 2021-06-09)
PROC: 0RQS0ZZ Repair Right Carpometacarpal Joint, Open Approach (ICD-10-PCS; principal; 2021-06-09)
PROC: 3E0T3BZ Introduction of Anesthetic Agent into Peripheral Nerves and Plexi, Percutaneous Approach (ICD-10-PCS; principal; 2021-06-09)
DX: M18.0 Bilateral primary osteoarthritis of first carpometacarpal joints (principal); J44.9 Chronic obstructive pulmonary disease, unspecified; E03.9 Hypothyroidism, unspecified; K21.9 Gastro-esophageal reflux disease without esophagitis; Z87.891 Personal history of nicotine dependence; Z79.899 Other long term (current) drug therapy
CPT/HCPCS: 76000; J1100; J1885; J2250; J2405; J2704; J3010; S0020

== ENCOUNTER 2022-11-15 10:55 | Outpatient (CLI) | payer OTHER | END 2022-11-15 10:56 | disposition home or self-care (01) | LOC: CT 10:55 | PROVIDERS: ATTEND Internal Medicine | DX: J96.11 Chronic respiratory failure with hypoxia (principal); J44.9 Chronic obstructive pulmonary disease, unspecified | CPT/HCPCS: 71250 ==

== ENCOUNTER 2023-03-29 17:58 | Emergency (ER) | payer OTHER | END 2023-03-29 21:59 | disposition home or self-care (01) | LOC: ERS 17:58 | DX: J01.90 Acute sinusitis, unspecified (principal) | CPT/HCPCS: 99283 ==

== ENCOUNTER 2024-07-03 00:34 | Inpatient (IN) | payer OTHER ==
[2024-07-03 01:12] LABS: #Basophils 0.06 10x3/uL (0.0-0.2); %Basophils 0.5 % (0.0-1.0); %Eosinophils 1.6 % (0.0-10.0); %Lymphocytes 6.3 % (21.0-51.0); %Monocytes 8.9 % (0.0-10.0); %Neutrophils 82.3 % (42.0-75.0); Hematocrit 41.4 % (36.0-47.0); Hemoglobin 12.7 g/dL (12.0-16.0); Mean Corpuscular HGB CONC 30.7 g/dL (32.0-36.0); Mean Corpuscular Hemoglobin 28.2 pg (27.0-31.0); Platelet Count 240 10x3/uL (130-400); RBC Distribution Width 13.2 % (11.5-14.5)
[2024-07-03] MEDS ORDERED: cefTRIAXone (ROCEPHIN) 2 GM VIAL ONE (01:12)
[2024-07-03] MEDS ORDERED: Sodium Chloride 0.9% 100 ML ONE (01:12)
[2024-07-03 01:35] LABS: ALT (SGPT) 26 U/L (8-55); AST (SGOT) 20 U/L (5-34); Albumin 3.4 g/dL (3.5-5.0); Alkaline Phosphatase 74 U/L (40-110); Anion Gap 12 mmol/L (10-20); BUN (Urea Nitrogen) 8 mg/dL (9.8-20.1); Bilirubin, Total 0.2 mg/dL (0.2-1.2); Calc. Creatinine Clearance 0 mL/min (70-130); Calcium 8.6 mg/dL (7.8-10.44); Carbon Dioxide 32 mmol/L (22-29); Chloride 96 mmol/L (98-107); Estimated GFR 100; Glucose 152 mg/dL (70-105); Potassium 3.4 mmol/L (3.5-5.1); Protein, Total 6.4 g/dL (6.0-8.3); Sodium 137 mmol/L (136-145)
[2024-07-03 01:37] LABS: Troponin I Less than 0.010 ng/mL (< 0.028)
[2024-07-03 01:38] LABS: INR-International Normal Ratio 1.1; PTT 42.3 sec (22.9-36.1); Prothrombin Time 14.2 sec (12.0-14.7)
[2024-07-03] MEDS ORDERED: Azithromycin 500 MG VIAL ONE (02:00)
[2024-07-03] MEDS ORDERED: Acetaminophen 500 MG TAB ONE (02:11)
[2024-07-03] MEDS ORDERED: Calcium Carbonate 500 MG ChewTAB PO PRN (02:31)
[2024-07-03] MEDS ORDERED: Gabapentin 100 MG CAP PO PRN (02:33)
[2024-07-03] MEDS: Potassium Chloride 20 MEQ TAB PO SCH (04:03)
[2024-07-03 04:11] VITALS: BMI 27.1
[2024-07-03 06:09] LABS: Bacteria/HPF None Seen HPF (None Seen); Bilirubin Negative (Negative); Blood, Urine Trace (Negative); CAUTI Indications for Culture Dysuria,urgency,freq; Clarity Clear (Clear); Glucose, Urine (Dipstick) Normal (Negative); Ketone, Urine Negative (Negative); Leukocyte Negative Leu/uL (Negative); Nitrite Negative (Negative); Protein, Urine (Dipstick) Negative (Neg-Trace); RBC/HPF 0-3 HPF (0-3); Specific Gravity, Urine 1.006 (1.002-1.036); Squamous Epithelial 0-3 HPF (0-3); Urobilinogen Normal mg/dL (Less than 2); WBC/HPF 0-3 HPF (0-3); pH, Urine 6.5 (5.0-9.0)
[2024-07-03 06:21] LABS: Urine Culture Reflex No No
[2024-07-03 06:22] LABS: Legionella Urinary Ag Negative (Negative); Strep pneumo Urine Ag NEGATIVE (NEGATIVE)
[2024-07-03] MEDS: Mometasone 200 MCG/Formoterol 5 MCG 120 PUFF INHALER INH SCH (08:21)
[2024-07-03] MEDS: Ipratropium Bromide 2.5 ml Neb NEB SCH (08:23)
[2024-07-03] MEDS: Enoxaparin 40 MG (0.4 mL) SYRINGE SC SCH (08:33)
[2024-07-03] MEDS: methylPREDNISolone Sod Succ 40 MG VIAL IVP SCH (08:34)
[2024-07-03] MEDS: Venlafaxine HCl XR 150 MG CAP PO SCH (08:34)
[2024-07-03] MEDS: Pantoprazole DR 40 MG TAB PO SCH (08:34)
[2024-07-03 08:36] LABS: #Basophils 0.03 10x3/uL (0.0-0.2); #Eosinophils Less than 0.03 10x3/uL (0.0-0.7); %Basophils 0.2 % (0.0-1.0); %Eosinophils 0.1 % (0.0-10.0); %Lymphocytes 1.6 % (21.0-51.0); %Monocytes 2.9 % (0.0-10.0); %Neutrophils 94.5 % (42.0-75.0); Hematocrit 37.9 % (36.0-47.0); Hemoglobin 11.8 g/dL (12.0-16.0); Mean Corpuscular HGB CONC 31.1 g/dL (32.0-36.0); Mean Corpuscular Hemoglobin 28.3 pg (27.0-31.0); Mean Corpuscular Volume 90.9 fL (78.0-98.0); Mean Platelet Volume 9.1 fL (7.4-10.4); Platelet Count 273 10x3/uL (130-400); RBC Distribution Width 13.3 % (11.5-14.5); Red Blood Cell (RBC) Count 4.17 mill/uL (4.20-5.40)
[2024-07-03 08:51] LABS: ALT (SGPT) 33 U/L (8-55); AST (SGOT) 24 U/L (5-34); Albumin 3.3 g/dL (3.5-5.0); Alkaline Phosphatase 72 U/L (40-110); Anion Gap 10 mmol/L (10-20); BUN (Urea Nitrogen) 6 mg/dL (9.8-20.1); Bilirubin, Total 0.2 mg/dL (0.2-1.2); Calc. Creatinine Clearance 101 mL/min (70-130); Calcium 8.6 mg/dL (7.8-10.44); Carbon Dioxide 34 mmol/L (22-29); Chloride 100 mmol/L (98-107); Estimated GFR 102; Globulin 3.2 g/dL (2.4-3.5); Glucose 155 mg/dL (70-105); Potassium 4.5 mmol/L (3.5-5.1); Protein, Total 6.5 g/dL (6.0-8.3); Sodium 139 mmol/L (136-145)
[2024-07-03] MEDS ORDERED: Levothyroxine Sodium 50 MCG TAB PO SCH (09:00)
[2024-07-03] MEDS: Benzonatate 100 MG CAP PO PRN (11:03)
[2024-07-03] MEDS: Guaifenesin DM 100-10/5 ML UDCUP PO PRN (15:16)
[2024-07-03] MEDS: HYDROcodone/Acetaminophen 5/325 mg Tablet PO PRN (15:17)
[2024-07-03] MEDS: cefTRIAXone\\ROCEPHIN 1 GM in Sodium Chloride 0.9% 100 ML IVPB SCH (19:39)
[2024-07-03] MEDS: Acetaminophen 325 MG TAB PO PRN (19:40)
[2024-07-03] MEDS: Azithromycin 500 MG in Sodium Chloride 0.9% 250 ML 250 ML IVPB SCH (19:40)
[2024-07-03] MEDS: traZODone HCl 150 MG TAB PO SCH (19:40)
[2024-07-04] MEDS: Levothyroxine Sodium 50 MCG TAB PO SCH (05:09)
[2024-07-04] MEDS: Ipratropium/Albuterol 3 ML NEB EZPAP PRN (05:09)
[2024-07-04] MEDS: Sodium Chloride 0.65% Nasal 44 ML BOT EA NARE SCH ×2 (11:02→15:52)
[2024-07-04] MEDS: Loratadine 10 MG TAB PO SCH (11:02)
[2024-07-04] MEDS: Fioricet 325/50/40 mg Tablet PO PRN (11:09)
[2024-07-05] MEDS ORDERED: Aluminum & Magnesium Hydroxide 60 ML, Lidocaine 2% Viscous Solution 30 ML, diphenhydrAM... SSW PRN (08:33)
[2024-07-05] MEDS: Senokot S 8.6-50 MG TAB PO PRN (09:22)
[2024-07-05] MEDS: Loratadine 10 MG TAB PO SCH (09:22)
[2024-07-05] MEDS: guaiFENesin/Codeine 200 mg/20 mg 10 ml Cup PO PRN (10:43)
[2024-07-05] MEDS: Ipratropium/Albuterol 3 ML NEB EZPAP SCH (11:57)
[2024-07-05 12:19] LABS: Actual Bicarbonate (HCO3a) 35.6 mEq/L (22-28); Calcium, Ionized (arterial) 1.24 mmol/L (1.12-1.30); Carboxyhemoglobin (COHb) 0.6 gm% (0.0-3.0); Hematocrit-ABG 36 % (36.0-47.0); Hemoglobin (Hb) 12.4 g/dL (12.0-16.0); O2 Tension (PaO2), arterial 65.8 mmHg (> 80.0); Potassium - ABG Lab 3.76 mmol/L (3.70-5.30); pH, Arterial 7.311 (7.35-7.45)
[2024-07-05 12:22] LABS: ALV-art Gradient 93.625 mmHg (0-20); CO2 Tension 72.1 mmHg (35.0-45.0); Puncture Site Left Radial artery
[2024-07-06] MEDS: Ondansetron PF 4 MG/2 ML Vial IVP PRN (19:55)
[2024-07-07] MEDS: Mineral Oil ENEMA PR SCH (09:54)
[2024-07-07] MEDS: methylPREDNISolone Sod Succ 40 MG VIAL IVP SCH (14:18)
[2024-07-07 18:22] LABS: Hematocrit 43.2 % (36.0-47.0); Hemoglobin 13.4 g/dL (12.0-16.0); Mean Corpuscular Hemoglobin 27.8 pg (27.0-31.0); Mean Corpuscular Volume 89.6 fL (78.0-98.0); Mean Platelet Volume 8.8 fL (7.4-10.4); Platelet Count 338 10x3/uL (130-400); RBC Distribution Width 13.7 % (11.5-14.5); Red Blood Cell (RBC) Count 4.82 mill/uL (4.20-5.40)
[2024-07-07 18:33] LABS: Anion Gap 12 mmol/L (10-20); BUN (Urea Nitrogen) 19 mg/dL (9.8-20.1); Calc. Creatinine Clearance 103 mL/min (70-130); Calcium 9.4 mg/dL (7.8-10.44); Carbon Dioxide 36 mmol/L (22-29); Chloride 90 mmol/L (98-107); Estimated GFR 103; Glucose 158 mg/dL (70-105); Potassium 4.3 mmol/L (3.5-5.1); Sodium 134 mmol/L (136-145)
[2024-07-07 19:02] LABS: Band 41 % (5-11); Lymphocytes 4 % (21-51); Metamyelocyte 1 % (0-0); Monocytes 6 % (0-10); Myelocyte 1 % (0-0); Neutrophil 48 % (42-75); Platelet Adequacy Comment Platelets Normal; Polychromasia SLIGHT = 2-3 cells HPF (0-2); Reflex for Review?? YES
[2024-07-07] MEDS: Piperacillin/Tazobactam 3.375 GM in Sodium Chloride 0.9% 100 ML IVPB SCH ×2 (20:00→22:33)
[2024-07-07] MEDS: Vancomycin (BATCH) 1.75 GM in Premix 1 BAG IVPB SCH (20:02)
[2024-07-07] MEDS: Sodium Chloride 0.9% 1,000 ML IV SCH ×2 (20:02→22:34)
[2024-07-07 20:03] LABS: Bacteria/HPF None Seen HPF (None Seen); Bilirubin Negative (Negative); Blood, Urine Negative (Negative); CAUTI Indications for Culture Dysuria,urgency,freq; Clarity Clear (Clear); Glucose, Urine (Dipstick) Normal (Negative); Ketone, Urine Negative (Negative); Leukocyte Negative Leu/uL (Negative); Nitrite Negative (Negative); Protein, Urine (Dipstick) 70 mg/dL (Neg-Trace); RBC/HPF 0-3 HPF (0-3); Specific Gravity, Urine 1.022 (1.002-1.036); Squamous Epithelial 0-3 HPF (0-3); Urobilinogen Normal mg/dL (Less than 2); WBC/HPF 0-3 HPF (0-3); pH, Urine 8.5 (5.0-9.0)
[2024-07-07 20:25] LABS: Urine Culture Reflex No No
[2024-07-07] MEDS: Vancomycin 1 GM in Premix 1 BAG IVPB SCH (22:33)
[2024-07-08] MEDS: Piperacillin/Tazobactam 3.375 GM in Sodium Chloride 0.9% 100 ML IVPB SCH
[2024-07-08 04:08] LABS: Hematocrit 42.7 % (36.0-47.0); Hemoglobin 13.2 g/dL (12.0-16.0); Mean Corpuscular HGB CONC 30.9 g/dL (32.0-36.0); Mean Corpuscular Hemoglobin 27.3 pg (27.0-31.0); Mean Corpuscular Volume 88.4 fL (78.0-98.0); Mean Platelet Volume 8.8 fL (7.4-10.4); Platelet Count 294 10x3/uL (130-400); Red Blood Cell (RBC) Count 4.83 mill/uL (4.20-5.40)
[2024-07-08 04:26] LABS: Vancomycin, Random Less than 1.4 ug/mL (See Comment)
[2024-07-08 04:27] LABS: Anion Gap 11 mmol/L (10-20); BUN (Urea Nitrogen) 19 mg/dL (9.8-20.1); Calc. Creatinine Clearance 95 mL/min (70-130); Calcium 9.6 mg/dL (7.8-10.44); Carbon Dioxide 34 mmol/L (22-29); Chloride 94 mmol/L (98-107); Estimated GFR 101; Glucose 111 mg/dL (70-105); Potassium 4.1 mmol/L (3.5-5.1); Sodium 135 mmol/L (136-145)
[2024-07-08 04:49] LABS: Band 28 % (5-11); Lymphocytes 2 % (21-51); Monocytes 3 % (0-10); Neutrophil 66 % (42-75); Platelet Adequacy Comment Platelets Normal; Polychromasia SLIGHT = 2-3 cells HPF (0-2); Reactive Lymphocytes 1 % (0-10)
[2024-07-08] MEDS ORDERED: Morphine 4 MG/ML VIAL SLOW IVP PRN (09:58)
[2024-07-08] MEDS: Morphine 2 MG/ML VIAL SLOW IVP PRN (10:32)
[2024-07-08] MEDS ORDERED: Vancomycin 1 GM in Premix 1 BAG IVPB SCH (11:00)
[2024-07-08] MEDS ORDERED: Ipratropium/Albuterol 3 ML NEB ONE (11:35)
[2024-07-08] MEDS ORDERED: Lidocaine 1% PF 5 ML VIAL ONE (12:28)
[2024-07-08] MEDS ORDERED: Ondansetron PF 4 MG/2 ML Vial ONE (12:28)
[2024-07-08] MEDS ORDERED: Dexamethasone 20 MG/5 ML VIAL ONE (12:28)
[2024-07-08] MEDS ORDERED: Rocuronium Bromide 10 MG/ML (10ML VIAL) ONE ×2 (12:28→15:31)
[2024-07-08] MEDS ORDERED: PROPOFOL 20 ML ONE (12:28)
[2024-07-08] MEDS ORDERED: fentaNYL PF 100 MCG/2 ML SYRINGE ONE ×2 (12:28→15:37)
[2024-07-08] MEDS ORDERED: PHENYLEPHRINE-NS 100 MCG/ML 10 ML SYRINGE ONE ×2 (12:30→15:00)
[2024-07-08] MEDS ORDERED: Albumin 5% 500 ML ONE (14:25)
[2024-07-08] MEDS ORDERED: Lorazepam 2 MG/ML VIAL SLOW IVP PRN (14:30)
[2024-07-08] MEDS ORDERED: Morphine 2 MG/ML VIAL SLOW IVP PRN (14:30)
[2024-07-08] MEDS ORDERED: DISCONTINUE PREVIOUS NARCOTIC PAIN MEDICATIONS AND BENZODIAZEPINES FS SCH (14:30)
[2024-07-08] MEDS ORDERED: Electrolyte Replacement Protocol FS PRN (14:30)
[2024-07-08] MEDS ORDERED: Propofol 1,000 MG/100 ML VIAL IV PRN (14:30)
[2024-07-08] MEDS ORDERED: Ventilator Sedation Protocol 1 EACH FS SCH (14:30)
[2024-07-08] MEDS ORDERED: Fentanyl BOLUS 250 ML IVPB PRN (14:30)
[2024-07-08] MEDS ORDERED: Propofol BOLUS 1,000 MG/100 ML VIAL IV PRN (14:30)
[2024-07-08] MEDS: Electrolyte Replacement Protocol 1 EACH FS ONE (14:39)
[2024-07-08] MEDS ORDERED: SUCCINYLCHOLINE/SOD CL,ISO/PF 200 MG/10 ML SYRINGE FS ONE (15:01)
[2024-07-08 16:45] LABS: Actual Bicarbonate (HCO3a) 25.3 mEq/L (22-28); Base Excess (BEa) -1.2 mEq/L (-2.0 to +3.0); CO2 Tension 50.1 mmHg (35.0-45.0); Hematocrit-ABG 36 % (36.0-47.0); Hemoglobin (Hb) 12.2 g/dL (12.0-16.0); O2 Tension (PaO2), arterial 179.5 mmHg (> 80.0); Potassium - ABG Lab 4.26 mmol/L (3.70-5.30); pH, Arterial 7.321 (7.35-7.45)
[2024-07-08] MEDS: Fentanyl CADD 100 ML IV SCH (16:46)
[2024-07-08] MEDS: Ipratropium/Albuterol 3 ML NEB ONE (16:52)
[2024-07-08 16:54] LABS: ALV-art Gradient 43.075 mmHg (0-20); Puncture Site Right Brachial art
[2024-07-09 04:39] LABS: Hematocrit 32.6 % (36.0-47.0); Mean Corpuscular HGB CONC 30.7 g/dL (32.0-36.0); Mean Corpuscular Hemoglobin 27.8 pg (27.0-31.0); Mean Corpuscular Volume 90.6 fL (78.0-98.0); Mean Platelet Volume 9.3 fL (7.4-10.4); Platelet Count 172 10x3/uL (130-400); RBC Distribution Width 14.1 % (11.5-14.5)
[2024-07-09 04:51] LABS: ALT (SGPT) 21 U/L (8-55); AST (SGOT) 16 U/L (5-34); Albumin 2.4 g/dL (3.5-5.0); Alkaline Phosphatase 41 U/L (40-110); Anion Gap 9 mmol/L (10-20); BUN (Urea Nitrogen) 21 mg/dL (9.8-20.1); Bilirubin, Total 0.3 mg/dL (0.2-1.2); Calc. Creatinine Clearance 91 mL/min (70-130); Calcium 8.2 mg/dL (7.8-10.44); Carbon Dioxide 31 mmol/L (22-29); Chloride 102 mmol/L (98-107); Estimated GFR 100; Globulin 2.5 g/dL (2.4-3.5); Glucose 127 mg/dL (70-105); Potassium 4.4 mmol/L (3.5-5.1); Protein, Total 4.9 g/dL (6.0-8.3); Sodium 138 mmol/L (136-145)
[2024-07-09 05:05] LABS: Band 10 % (5-11); Hypochromia SLIGHT = 6-15 cells HPF (0-5); Monocytes 3 % (0-10); Neutrophil 86 % (42-75); Platelet Adequacy Comment Platelets Normal; Polychromasia SLIGHT = 2-3 cells HPF (0-2)
[2024-07-09 07:46] LABS: Actual Bicarbonate (HCO3a) 29.8 mEq/L (22-28); Base Excess (BEa) 4.7 mEq/L (-2.0 to +3.0); CO2 Tension 46.5 mmHg (35.0-45.0); Calcium, Ionized (arterial) 1.07 mmol/L (1.12-1.30); Carboxyhemoglobin (COHb) 0.9 gm% (0.0-3.0); Hematocrit-ABG 34 % (36.0-47.0); Hemoglobin (Hb) 11.4 g/dL (12.0-16.0); O2 Tension (PaO2), arterial 79.1 mmHg (> 80.0); Potassium - ABG Lab 4.12 mmol/L (3.70-5.30); pH, Arterial 7.424 (7.35-7.45)
[2024-07-09 07:47] LABS: ALV-art Gradient 147.975 mmHg (0-20); Puncture Site Right Radial artery
[2024-07-09] MEDS: Pantoprazole 40 MG VIAL IVP SCH (08:58)
[2024-07-09] MEDS: Lactated Ringer's 1,000 ML IV SCH (08:59)
[2024-07-09] MEDS: DC Sedation Protocol FS ONE (10:38)
[2024-07-09] MEDS: Morphine 2 MG/ML VIAL SLOW IVP PRN (15:52)
[2024-07-10 05:15] LABS: Hematocrit 30.2 % (36.0-47.0); Hemoglobin 9.2 g/dL (12.0-16.0); Mean Corpuscular HGB CONC 30.5 g/dL (32.0-36.0); Mean Corpuscular Volume 92.1 fL (78.0-98.0); Mean Platelet Volume 9.3 fL (7.4-10.4); Platelet Count 169 10x3/uL (130-400); RBC Distribution Width 14.5 % (11.5-14.5); Red Blood Cell (RBC) Count 3.28 mill/uL (4.20-5.40)
[2024-07-10 05:25] LABS: ALT (SGPT) 19 U/L (8-55); AST (SGOT) 19 U/L (5-34); Albumin 2.3 g/dL (3.5-5.0); Alkaline Phosphatase 44 U/L (40-110); Anion Gap 7 mmol/L (10-20); BUN (Urea Nitrogen) 17 mg/dL (9.8-20.1); Bilirubin, Total 0.3 mg/dL (0.2-1.2); Calc. Creatinine Clearance 121 mL/min (70-130); Calcium 8.5 mg/dL (7.8-10.44); Carbon Dioxide 32 mmol/L (22-29); Chloride 103 mmol/L (98-107); Estimated GFR 107; Globulin 2.7 g/dL (2.4-3.5); Glucose 101 mg/dL (70-105); Potassium 4.3 mmol/L (3.5-5.1); Sodium 138 mmol/L (136-145)
[2024-07-10 05:41] LABS: Band 9 % (5-11); Hypochromia SLIGHT = 6-15 cells (100X) (0-5/hpf); Lymphocytes 4 % (21-51); Monocytes 9 % (0-10); Myelocyte 1 % (0-0); Neutrophil 72 % (42-75); Plasma Cells 0 % (0-0); Platelet Adequacy Comment Appears Adequate; Promyelocytes 2 % (0-0); Reactive Lymphocytes 3 % (0-10); Total Cell Count 100
[2024-07-10] MEDS ORDERED: Lactated Ringer's 1,000 ML IV SCH (12:30)
[2024-07-10] MEDS: Ipratropium/Albuterol 3 ML NEB EZPAP SCH (14:51)
[2024-07-10] MEDS: Lactated Ringer's 1,000 ML IV SCH (19:59)
[2024-07-10] MEDS: methylPREDNISolone Sod Succ 40 MG VIAL IVP SCH (20:00)
[2024-07-11 05:52] LABS: Hematocrit 31.5 % (36.0-47.0); Hemoglobin 9.5 g/dL (12.0-16.0); Mean Corpuscular HGB CONC 30.2 g/dL (32.0-36.0); Mean Corpuscular Hemoglobin 28.3 pg (27.0-31.0); Mean Corpuscular Volume 93.8 fL (78.0-98.0); Platelet Count 214 10x3/uL (130-400); RBC Distribution Width 14.4 % (11.5-14.5); Red Blood Cell (RBC) Count 3.36 mill/uL (4.20-5.40)
[2024-07-11 06:05] LABS: ALT (SGPT) 20 U/L (8-55); AST (SGOT) 19 U/L (5-34); Albumin 2.5 g/dL (3.5-5.0); Alkaline Phosphatase 43 U/L (40-110); Anion Gap 10 mmol/L (10-20); BUN (Urea Nitrogen) 19 mg/dL (9.8-20.1); Bilirubin, Total 0.3 mg/dL (0.2-1.2); Calc. Creatinine Clearance 114 mL/min (70-130); Calcium 8.7 mg/dL (7.8-10.44); Carbon Dioxide 33 mmol/L (22-29); Chloride 101 mmol/L (98-107); Estimated GFR 103; Globulin 2.9 g/dL (2.4-3.5); Glucose 89 mg/dL (70-105); Potassium 4.6 mmol/L (3.5-5.1); Protein, Total 5.4 g/dL (6.0-8.3); Sodium 139 mmol/L (136-145)
[2024-07-11 06:21] LABS: Band 6 % (5-11); Hypochromia SLIGHT = 6-15 cells HPF (0-5); Metamyelocyte 8 % (0-0); Monocytes 5 % (0-10); Myelocyte 5 % (0-0); Neutrophil 77 % (42-75); Platelet Adequacy Comment Platelets Normal; Polychromasia SLIGHT = 2-3 cells HPF (0-2); Stomatocytes SLIGHT = 2-5 cells HPF (0-1); Vacuoles SLIGHT
[2024-07-11] MEDS: Pantoprazole DR 40 MG TAB PO SCH (10:44)
[2024-07-11] MEDS: Polyethylene Glycol 3350 17 GM Packet PO SCH (10:46)
[2024-07-11] MEDS: Simethicone Chewable 80 MG TAB PO SCH ×2 (13:24→16:36)
[2024-07-11] MEDS: Calcium Carbonate 500 MG ChewTAB PO PRN (13:24)
[2024-07-12 05:29] LABS: Hematocrit 37.1 % (36.0-47.0); Hemoglobin 11.3 g/dL (12.0-16.0); Mean Corpuscular HGB CONC 30.5 g/dL (32.0-36.0); Mean Corpuscular Hemoglobin 28.1 pg (27.0-31.0); Mean Corpuscular Volume 92.3 fL (78.0-98.0); Mean Platelet Volume 8.6 fL (7.4-10.4); Platelet Count 239 10x3/uL (130-400); RBC Distribution Width 14.1 % (11.5-14.5); Red Blood Cell (RBC) Count 4.02 mill/uL (4.20-5.40)
[2024-07-12 05:40] LABS: Anion Gap 11 mmol/L (10-20); BUN (Urea Nitrogen) 11 mg/dL (9.8-20.1); Calc. Creatinine Clearance 123 mL/min (70-130); Calcium 8.6 mg/dL (7.8-10.44); Carbon Dioxide 36 mmol/L (22-29); Chloride 97 mmol/L (98-107); Estimated GFR 105; Glucose 77 mg/dL (70-105); Potassium 4.5 mmol/L (3.5-5.1); Sodium 139 mmol/L (136-145)
[2024-07-12 05:55] LABS: Anisocytosis SLIGHT = 6-15 cells HPF (0-5); Band 7 % (5-11); Eosinophils 2 % (0-10); Hypochromia SLIGHT = 6-15 cells HPF (0-5); Lymphocytes 6 % (21-51); Metamyelocyte 5 % (0-0); Monocytes 2 % (0-10); Myelocyte 5 % (0-0); Neutrophil 73 % (42-75); Platelet Adequacy Comment Platelets Normal; Polychromasia SLIGHT = 2-3 cells HPF (0-2)
[2024-07-12] MEDS: Levothyroxine Sodium 50 MCG TAB PO SCH (06:18)
[2024-07-12] MEDS: methylPREDNISolone Sod Succ 40 MG VIAL IVP SCH (09:44)
[2024-07-12] MEDS ORDERED: oxyCODONE 5 MG TAB PO PRN (12:39)
[2024-07-12] MEDS: oxyCODONE 5 MG TAB PO PRN (16:51)
[2024-07-13 06:24] LABS: Hematocrit 36.6 % (36.0-47.0); Hemoglobin 11.1 g/dL (12.0-16.0); Mean Corpuscular HGB CONC 30.3 g/dL (32.0-36.0); Mean Corpuscular Hemoglobin 27.8 pg (27.0-31.0); Mean Corpuscular Volume 91.5 fL (78.0-98.0); Mean Platelet Volume 8.8 fL (7.4-10.4); Platelet Count 269 10x3/uL (130-400); RBC Distribution Width 13.9 % (11.5-14.5)
[2024-07-13 06:27] LABS: Anion Gap 11 mmol/L (10-20); BUN (Urea Nitrogen) 8 mg/dL (9.8-20.1); Calc. Creatinine Clearance 127 mL/min (70-130); Calcium 8.7 mg/dL (7.8-10.44); Carbon Dioxide 38 mmol/L (22-29); Chloride 94 mmol/L (98-107); Estimated GFR 106; Glucose 96 mg/dL (70-105); Potassium 3.2 mmol/L (3.5-5.1); Sodium 140 mmol/L (136-145)
[2024-07-13 06:44] LABS: Band 2 % (5-11); Hypochromia SLIGHT = 6-15 cells HPF (0-5); Lymphocytes 1 % (21-51); Metamyelocyte 2 % (0-0); Monocytes 3 % (0-10); Myelocyte 7 % (0-0); Neutrophil 85 % (42-75); Platelet Adequacy Comment Platelets Normal
[2024-07-13] MEDS: Potassium Chloride 20 MEQ TAB PO SCH (13:30)
[2024-07-13] MEDS ORDERED: Meclizine HCl 12.5 MG TAB PO PRN (19:52)
[2024-07-14 06:55] LABS: Anion Gap 8 mmol/L (10-20); BUN (Urea Nitrogen) 10 mg/dL (9.8-20.1); Calc. Creatinine Clearance 118 mL/min (70-130); Calcium 9.6 mg/dL (7.8-10.44); Carbon Dioxide 38 mmol/L (22-29); Chloride 99 mmol/L (98-107); Estimated GFR 104; Glucose 156 mg/dL (70-105); Hematocrit 38.1 % (36.0-47.0); Hemoglobin 11.4 g/dL (12.0-16.0); Mean Corpuscular HGB CONC 29.9 g/dL (32.0-36.0); Mean Corpuscular Hemoglobin 28.1 pg (27.0-31.0); Mean Corpuscular Volume 94.1 fL (78.0-98.0); Mean Platelet Volume 9.2 fL (7.4-10.4); Platelet Count 310 10x3/uL (130-400); Potassium 4.2 mmol/L (3.5-5.1); RBC Distribution Width 14.2 % (11.5-14.5); Red Blood Cell (RBC) Count 4.05 mill/uL (4.20-5.40); Sodium 141 mmol/L (136-145)
[2024-07-14 07:41] LABS: Band 6 % (5-11); Eosinophils 1 % (0-10); Hypochromia SLIGHT = 6-15 cells HPF (0-5); Lymphocytes 9 % (21-51); Metamyelocyte 4 % (0-0); Monocytes 4 % (0-10); Myelocyte 4 % (0-0); Neutrophil 72 % (42-75); Platelet Adequacy Comment Platelets Normal; Polychromasia SLIGHT = 2-3 cells HPF (0-2)
[2024-07-14] MEDS: predniSONE 20 MG TAB PO SCH (08:49)
[2024-07-14] MEDS: Phenazopyridine HCl 100 MG TAB PO SCH (12:15)
[2024-07-14 14:03] LABS: Bacteria/HPF None Seen HPF (None Seen); Bilirubin Negative (Negative); Blood, Urine Trace (Negative); CAUTI Indications for Culture Dysuria,urgency,freq; Clarity Extra Turbid (Clear); Glucose, Urine (Dipstick) Normal (Negative); Ketone, Urine Negative (Negative); Leukocyte Negative Leu/uL (Negative); Nitrite Negative (Negative); Protein, Urine (Dipstick) Negative (Neg-Trace); RBC/HPF 0-3 HPF (0-3); Specific Gravity, Urine 1.016 (1.002-1.036); Urobilinogen 6 mg/dL (Less than 2); WBC/HPF 0-3 HPF (0-3)
[2024-07-14 14:04] LABS: Urine Culture Reflex No No
[2024-07-15 05:47] LABS: Hematocrit 33.8 % (36.0-47.0); Hemoglobin 10.1 g/dL (12.0-16.0); Mean Corpuscular HGB CONC 29.9 g/dL (32.0-36.0); Mean Corpuscular Volume 93.6 fL (78.0-98.0); Mean Platelet Volume 9.3 fL (7.4-10.4); Platelet Count 312 10x3/uL (130-400); Red Blood Cell (RBC) Count 3.61 mill/uL (4.20-5.40)
[2024-07-15 06:18] LABS: Anion Gap 9 mmol/L (10-20); BUN (Urea Nitrogen) 11 mg/dL (9.8-20.1); Calc. Creatinine Clearance 127 mL/min (70-130); Calcium 9.2 mg/dL (7.8-10.44); Carbon Dioxide 38 mmol/L (22-29); Chloride 99 mmol/L (98-107); Estimated GFR 106; Glucose 98 mg/dL (70-105); Potassium 4.2 mmol/L (3.5-5.1); Sodium 142 mmol/L (136-145)
[2024-07-15 06:35] LABS: Eosinophils 1 % (0-10); Hypochromia SLIGHT = 6-15 cells HPF (0-5); Lymphocytes 3 % (21-51); Metamyelocyte 1 % (0-0); Monocytes 5 % (0-10); Myelocyte 4 % (0-0); Neutrophil 86 % (42-75); Platelet Adequacy Comment Platelets Normal; Polychromasia SLIGHT = 2-3 cells HPF (0-2)
[2024-07-15] MEDS: Albuterol 200 PUFF (6.7GM INHALER) INH PRN (11:42)
[2024-07-15] MEDS: Ipratropium/Albuterol 3 ML NEB NEB PRN (13:48)
[2024-07-16 05:52] LABS: Hematocrit 32.9 % (36.0-47.0); Hemoglobin 9.9 g/dL (12.0-16.0); Mean Corpuscular HGB CONC 30.1 g/dL (32.0-36.0); Mean Corpuscular Hemoglobin 28.2 pg (27.0-31.0); Mean Corpuscular Volume 93.7 fL (78.0-98.0); Mean Platelet Volume 9.9 fL (7.4-10.4); Platelet Count 336 10x3/uL (130-400); RBC Distribution Width 14.3 % (11.5-14.5); Red Blood Cell (RBC) Count 3.51 mill/uL (4.20-5.40)
[2024-07-16 05:53] LABS: Anion Gap 10 mmol/L (10-20); BUN (Urea Nitrogen) 12 mg/dL (9.8-20.1); Calc. Creatinine Clearance 103 mL/min (70-130); Calcium 9.4 mg/dL (7.8-10.44); Carbon Dioxide 39 mmol/L (22-29); Chloride 97 mmol/L (98-107); Estimated GFR 103; Glucose 87 mg/dL (70-105); Potassium 4.3 mmol/L (3.5-5.1); Sodium 142 mmol/L (136-145)
[2024-07-16 06:37] LABS: Anisocytosis SLIGHT = 6-15 cells HPF (0-5); Band 4 % (5-11); Eosinophils 3 % (0-10); Hypochromia SLIGHT = 6-15 cells HPF (0-5); Large Platelets 2.9 % (0-5); Lymphocytes 14 % (21-51); Metamyelocyte 1 % (0-0); Monocytes 4 % (0-10); Myelocyte 6 % (0-0); Neutrophil 65 % (42-75); Platelet Adequacy Comment Platelets Normal; Polychromasia SLIGHT = 2-3 cells HPF (0-2); Reactive Lymphocytes 2 % (0-10); Smudge Cells 24.5 %
[2024-07-17 05:48] LABS: #Basophils 0.06 10x3/uL (0.0-0.2); %Basophils 0.4 % (0.0-1.0); %Eosinophils 1.6 % (0.0-10.0); %Lymphocytes 8.2 % (21.0-51.0); %Monocytes 6.7 % (0.0-10.0); %Neutrophils 78.7 % (42.0-75.0); Hematocrit 35.4 % (36.0-47.0); Hemoglobin 10.5 g/dL (12.0-16.0); Mean Corpuscular HGB CONC 29.7 g/dL (32.0-36.0); Mean Corpuscular Hemoglobin 27.9 pg (27.0-31.0); Mean Corpuscular Volume 93.9 fL (78.0-98.0); Mean Platelet Volume 8.6 fL (7.4-10.4); Platelet Count 544 10x3/uL (130-400); RBC Distribution Width 14.1 % (11.5-14.5); Red Blood Cell (RBC) Count 3.77 mill/uL (4.20-5.40)
[2024-07-17 06:16] LABS: Anion Gap 11 mmol/L (10-20); BUN (Urea Nitrogen) 12 mg/dL (9.8-20.1); Calc. Creatinine Clearance 95 mL/min (70-130); Calcium 9.5 mg/dL (7.8-10.44); Carbon Dioxide 39 mmol/L (22-29); Chloride 94 mmol/L (98-107); Estimated GFR 101; Glucose 95 mg/dL (70-105); Potassium 4.3 mmol/L (3.5-5.1); Sodium 140 mmol/L (136-145)
[2024-07-17 11:49] VITALS: BMI 26.9
[2024-07-17 12:09] VITALS: BP 139/71; TEMP 99
== END 2024-07-17 17:08 | DRG 981 ==
LOC: ERS 00:34 → OBSVTOIN 02:40 → SURG A 02:40 → IMCU/EMU 07-07 21:27 → CCU 07-08 11:39 → IMCU/EMU 07-10 15:38 → T4-A 07-14 17:08
PROVIDERS: ADMIT Internal Medicine; ATTEND Family Medicine
PROC: 0DTN0ZZ Resection of Sigmoid Colon, Open Approach (ICD-10-PCS; principal; 2024-07-03)
PROC: 0D1M0Z4 Bypass Descending Colon to Cutaneous, Open Approach (ICD-10-PCS; 2024-07-03)
PROC: 5A1935Z Respiratory Ventilation, Less than 24 Consecutive Hours (ICD-10-PCS; 2024-07-03)
PROC: 0BH17EZ Insertion of Endotracheal Airway into Trachea, Via Natural or Artificial Opening (ICD-10-PCS; 2024-07-03)
PROC: 3E033XZ Introduction of Vasopressor into Peripheral Vein, Percutaneous Approach (ICD-10-PCS; 2024-07-03)
PROC: 30233J0 Transfusion of Autologous Serum Albumin into Peripheral Vein, Percutaneous Approach (ICD-10-PCS; 2024-07-03)
PROC: 3E04329 Introduction of Other Anti-infective into Central Vein, Percutaneous Approach (ICD-10-PCS; 2024-07-03)
PROC: 4A133R1 Monitoring of Arterial Saturation, Peripheral, Percutaneous Approach (ICD-10-PCS; 2024-07-03)
DX: J10.08 Influenza due to other identified influenza virus with other specified pneumonia (principal); A41.9 Sepsis, unspecified organism; J96.21 Acute and chronic respiratory failure with hypoxia; K65.1 Peritoneal abscess; K57.20 Diverticulitis of large intestine with perforation and abscess without bleeding; J96.12 Chronic respiratory failure with hypercapnia; D62 Acute posthemorrhagic anemia; J98.11 Atelectasis; J44.1 Chronic obstructive pulmonary disease with (acute) exacerbation; R73.9 Hyperglycemia, unspecified; R51.9 Headache, unspecified; F41.9 Anxiety disorder, unspecified; F32.A Depression, unspecified; R42 Dizziness and giddiness; B96.3 Hemophilus influenzae [H. influenzae] as the cause of diseases classified elsewhere; J43.9 Emphysema, unspecified; E03.9 Hypothyroidism, unspecified; Z99.81 Dependence on supplemental oxygen; Z90.710 Acquired absence of both cervix and uterus
CPT/HCPCS: 36415; 36416; 36600; 70450; 71045; 74177; 80048; 80053; 80202; 81001; 82805; 83605; 83880; 84145; 84443; 84484; 85025; 85060; 85610; 85730; 87040; 87449; 87899; 88307; 93005; 93010; 94002; 94003; 94640; 94660; 94664; 94760; 96365; 96367; 97139; A4314; C1713; J0456; J0696; J1100; J1650; J2272; J2405; J2470; J2543; J2704; J2919; J3010; J7030; J7050; J7120; J7512; J7620; J7644; P9045

== ENCOUNTER 2025-02-15 14:08 | Outpatient (CLI) | payer OTHER ==
[~2025-02-15 14:08] MED LIST: GASTROGRAFIN 30 ML BOT ONE; Iopamidol 370 76% 100 ML VIAL ONE
== END 2025-02-15 14:09 | disposition home or self-care (01) ==
LOC: CT 14:08
PROVIDERS: ATTEND Internal Medicine
DX: J44.9 Chronic obstructive pulmonary disease, unspecified (principal); Z98.0 Intestinal bypass and anastomosis status; Z87.19 Personal history of other diseases of the digestive system; Z93.3 Colostomy status; Z93.2 Ileostomy status; K63.89 Other specified diseases of intestine; R14.3 Flatulence
CPT/HCPCS: 74177; Q9963; Q9967

== ENCOUNTER 2025-05-16 15:22 | Outpatient (CLI) | payer OTHER ==
[2025-05-16 16:06] LABS: #Basophils 0.05 10x3/uL (0.0-0.2); #Eosinophils 0.32 10x3/uL (0.0-0.7); #Monocytes 0.59 10x3/uL (0.11-0.59); #Neutrophils 6.36 10x3/uL (1.40-6.50); %Basophils 0.6 % (0.0-1.0); %Eosinophils 3.9 % (0.0-10.0); %Lymphocytes 9.7 % (21.0-51.0); %Monocytes 7.2 % (0.0-10.0); %Neutrophils 77.4 % (42.0-75.0); Hematocrit 39.7 % (36.0-47.0); Hemoglobin 11.9 g/dL (12.0-16.0); Mean Corpuscular Hemoglobin 27.6 pg (27.0-31.0); Mean Corpuscular Volume 92.1 fL (78.0-98.0); Platelet Count 348 10x3/uL (130-400); Red Blood Cell (RBC) Count 4.31 mill/uL (4.20-5.40); White Blood Cell (WBC) Count 8.22 10x3/uL (4.8-10.8)
[2025-05-16 16:24] LABS: ALT (SGPT) 18 U/L (Less than 34); AST (SGOT) 20 U/L (11-34); Albumin 4.0 g/dL (3.1-4.5); Alkaline Phosphatase 63 U/L (40-110); Anion Gap 10 mmol/L (10-20); BUN (Urea Nitrogen) 10 mg/dL (9.8-20.1); Bilirubin, Total 0.2 mg/dL (0.3-1.2); Calc. Creatinine Clearance 0 mL/min (70-130); Calcium 9.6 mg/dL (7.8-10.44); Carbon Dioxide 32 mmol/L (23-31); Chloride 98 mmol/L (98-107); Globulin 2.3 g/dL (2.4-3.5); Glucose 94 mg/dL (80-115); Potassium 4.2 mmol/L (3.5-5.1); Sodium 136 mmol/L (136-145)
== END 2025-05-16 15:23 | disposition home or self-care (01) ==
LOC: LABBT 15:22
PROVIDERS: ATTEND Surgery
DX: Z01.818 Encounter for other preprocedural examination (principal); Z93.2 Ileostomy status; Z87.19 Personal history of other diseases of the digestive system
CPT/HCPCS: 80053; 85025; 93005; 93010

== ENCOUNTER 2025-06-12 14:41 | Emergency (ER) | payer OTHER ==
[2025-06-12 16:51] LABS: #Basophils 0.05 10x3/uL (0.0-0.2); #Eosinophils 0.33 10x3/uL (0.0-0.7); #Monocytes 1.04 10x3/uL (0.11-0.59); #Neutrophils 10.00 10x3/uL (1.40-6.50); %Basophils 0.4 % (0.0-1.0); %Eosinophils 2.7 % (0.0-10.0); %Lymphocytes 5.8 % (21.0-51.0); %Monocytes 8.5 % (0.0-10.0); %Neutrophils 82.0 % (42.0-75.0); Hematocrit 35.7 % (36.0-47.0); Hemoglobin 10.6 g/dL (12.0-16.0); Mean Corpuscular Hemoglobin 27.0 pg (27.0-31.0); Mean Corpuscular Volume 91.1 fL (78.0-98.0); Platelet Count 355 10x3/uL (130-400); Red Blood Cell (RBC) Count 3.92 mill/uL (4.20-5.40); White Blood Cell (WBC) Count 12.20 10x3/uL (4.8-10.8)
[2025-06-12 17:05] LABS: ALT (SGPT) 7 U/L (Less than 34); AST (SGOT) 19 U/L (11-34); Albumin 3.9 g/dL (3.1-4.5); Alkaline Phosphatase 60 U/L (40-110); Anion Gap 15 mmol/L (10-20); BUN (Urea Nitrogen) 5 mg/dL (9.8-20.1); Bilirubin, Total 0.3 mg/dL (0.3-1.2); Calc. Creatinine Clearance 0 mL/min (70-130); Calcium 9.2 mg/dL (7.8-10.44); Carbon Dioxide 33 mmol/L (23-31); Chloride 96 mmol/L (98-107); Globulin 2.6 g/dL (2.4-3.5); Glucose 97 mg/dL (80-115); Magnesium 2.0 mg/dL (1.6-2.6); Potassium 3.5 mmol/L (3.5-5.1); Sodium 140 mmol/L (136-145)
[2025-06-12] MEDS ORDERED: Albuterol 2.5 MG (3 mL) NEB ONE (17:06)
[2025-06-12] MEDS ORDERED: Ipratropium Bromide 2.5 ml Neb ONE (17:07)
[2025-06-12] MEDS ORDERED: Acetaminophen 500 MG TAB ONE (18:10)
== END 2025-06-12 18:44 | disposition home or self-care (01) ==
LOC: ERS 14:41
DX: J44.1 Chronic obstructive pulmonary disease with (acute) exacerbation (principal); N39.0 Urinary tract infection, site not specified; Z87.891 Personal history of nicotine dependence
CPT/HCPCS: 71046; 80053; 83605; 83735; 83880; 84484; 85025; 85379; 87040; 87077; 87081; 87149; 87428; 87430; 93005; 94644; 96374; J2919; J7611; J7644

== ENCOUNTER 2025-07-10 10:50 | Emergency (ER) | payer OTHER ==
[2025-07-10 11:20] LABS: Bacteria/HPF None Seen HPF (None Seen); CAUTI Indications for Culture Acute Hematuria; Glucose, Urine (Dipstick) Normal (Negative); Leukocyte Negative Leu/uL (Negative); Protein, Urine (Dipstick) 10 mg/dL (Neg-Trace); RBC/HPF Greater than 50 HPF (0-3); Specific Gravity, Urine 1.017 (1.002-1.036); WBC/HPF 0-3 HPF (0-3)
[2025-07-10 11:21] LABS: Urine Culture Reflex No No
[2025-07-10 11:55] LABS: #Basophils 0.04 10x3/uL (0.0-0.2); #Eosinophils 0.31 10x3/uL (0.0-0.7); #Monocytes 0.60 10x3/uL (0.11-0.59); #Neutrophils 5.37 10x3/uL (1.40-6.50); %Basophils 0.6 % (0.0-1.0); %Eosinophils 4.3 % (0.0-10.0); %Lymphocytes 11.3 % (21.0-51.0); %Monocytes 8.4 % (0.0-10.0); %Neutrophils 74.7 % (42.0-75.0); Hematocrit 35.0 % (36.0-47.0); Hemoglobin 10.3 g/dL (12.0-16.0); Mean Corpuscular Hemoglobin 27.0 pg (27.0-31.0); Mean Corpuscular Volume 91.9 fL (78.0-98.0); Platelet Count 349 10x3/uL (130-400); Red Blood Cell (RBC) Count 3.81 mill/uL (4.20-5.40); White Blood Cell (WBC) Count 7.18 10x3/uL (4.8-10.8)
[2025-07-10 12:16] LABS: ALT (SGPT) 7 U/L (Less than 34); AST (SGOT) 18 U/L (11-34); Albumin 4.1 g/dL (3.1-4.5); Alkaline Phosphatase 53 U/L (40-110); Anion Gap 11 mmol/L (10-20); BUN (Urea Nitrogen) 8 mg/dL (9.8-20.1); Bilirubin, Total 0.2 mg/dL (0.3-1.2); Calc. Creatinine Clearance 0 mL/min (70-130); Calcium 9.8 mg/dL (7.8-10.44); Carbon Dioxide 34 mmol/L (23-31); Chloride 100 mmol/L (98-107); Globulin 2.4 g/dL (2.4-3.5); Glucose 82 mg/dL (80-115); Potassium 3.9 mmol/L (3.5-5.1); Sodium 141 mmol/L (136-145)
== END 2025-07-10 13:09 | disposition home or self-care (01) ==
LOC: ERS 10:50
DX: N30.01 Acute cystitis with hematuria (principal); N20.0 Calculus of kidney; E03.9 Hypothyroidism, unspecified; K21.9 Gastro-esophageal reflux disease without esophagitis; J44.9 Chronic obstructive pulmonary disease, unspecified; Z79.51 Long term (current) use of inhaled steroids; Z87.891 Personal history of nicotine dependence
CPT/HCPCS: 36415; 74176; 80053; 81001; 85025